=== PATIENT | female | born 1935 | race Caucasian/White ===

== ENCOUNTER 2019-01-14 20:39 | Inpatient (IN) ==
[2019-01-14] MEDS ORDERED: INFLUENZA VIRUS VACCINE 0.5 ML SYRINGE IM ONE (22:54)
[2019-01-14] MEDS ORDERED: NICOTINE 21 MG/24 HR PATCH TRANSDERM PRN (23:07)
[2019-01-14] MEDS ORDERED: ONDANSETRON 4 MG/2 ML VIAL IV PRN (23:07)
[2019-01-14] MEDS ORDERED: SODIUM CHLORIDE 0.9% 1,000 ML IV SCH (23:30)
[2019-01-14 23:49] LABS: Apearance,Urine CLOUDY (Clear); Bacteria,Urine Moderate /HPF (Few); Bilirubin,Urine Negative (Negative); Blood, Urine Small mg/dL (Negative); Glucose,Urine (UA) Negative (Negative); Hyaline Casts,Urine 22 /LPF (0-3); Ketones,Urine Negative (Negative); Mucus,Urine Occasional /LPF (Occasional); Nitrite,Urine Positive (Negative); Protein,Urine Negative; RBC,Urine 5 /HPF (0-4); Squamous Epithelial Cell,Urine Occasional /HPF (0-10); Urine Color Yellow (Yellow); Urine Specific Gravity 1.011 (1.001-1.035); Urine Urobilinogen < 2.0 EU/DL (0.2-1.0); WBC,Urine 68 /HPF (0-6)
[2019-01-14 23:54] LABS: Basophils # 0.1 10*3/uL (0.0-0.2); Basophils % 0.5 % (0.0-0.8); Eosinophils # 0.1 10*3/uL (0.0-0.87); Eosinophils % 1.1 % (0.00-10.9); Hematocrit 27.5 VOL% (35.7-47.0); Hemoglobin 8.5 GM/DL (12.0-16.0); Immature Granulocytes % 0.7 %; Immature Granulocytes Absolute 0.07 #; Lymphocytes % 10.2 % (21.3-54.2); Mean Corpuscular HGB Conc 30.9 GM/DL (32-36); Mean Corpuscular Volume 96.8 FL (87-102); Mean Platelet Volume 10.9 FL (9.6-12.0); Monocytes % 7.1 % (1.7-12.7); Neutrophils % 80.4 % (38.7-73.9); Platelet Count 153 T/CUMM (130-400); Red Blood Count 2.84 MC/CUMM (3.8-5.5); Red Cell Distribution Width 12.4 % (9.3-17.3); White Blood Count 10.1 T/CUMM (4-12)
[2019-01-15 00:22] LABS: CKMB % 3.2 %
[2019-01-15 00:23] LABS: Troponin I 0.057 NG/ML (0.00-0.045)
[2019-01-15 02:09] LABS: Alanine Aminotransferase 14 U/L (13-56); Albumin 2.2 G/DL (3.4-5.0); Alkaline Phosphatase 48 U/L (45-117); Aspartate Amino Transferase 16 U/L (0-37); Bilirubin,Total < 0.39 MG/DL (0.2-1.0); Blood Urea Nitrogen 183 MG/DL (7-18); Estimated Glom Filtration Rate 19 ML/MIN; Glucose 111 MG/DL (74-106); HDL Cholesterol 28 MG/DL (40-60); Risk Ratio 5.14; Thyroid Stimulating Hormone 0.714 uIU/ml (0.358-3.74); Total Protein 5.5 G/DL (6.4-8.3); Triglycerides 161 MG/DL (2-150); VLDL CHOLESTEROL 32.2 MG/DL
[2019-01-15 02:11] LABS: Calcium 6.1 MG/DL (8.5-10.1)
[2019-01-15] MEDS: cefTRIAXone 1,000 MG in SYRINGE 1 EACH IV SCH (06:34)
[2019-01-15] MEDS: DEXTROSE 5% NACL 0.45% 1,000 ML IV SCH ×3 (07:18→20:20)
[2019-01-15 07:50] LABS: Hematocrit 28.8 VOL% (35.7-47.0)
[2019-01-15 08:20] LABS: Alanine Aminotransferase 17 U/L (13-56); Albumin 2.2 G/DL (3.4-5.0); Alkaline Phosphatase 49 U/L (45-117); Aspartate Amino Transferase 20 U/L (0-37); Bilirubin,Total < 0.39 MG/DL (0.2-1.0); Blood Urea Nitrogen 165 MG/DL (7-18); CKMB % 2.6 %; Estimated Glom Filtration Rate 25 ML/MIN; Glucose 99 MG/DL (74-106); Osmolality,Calculated 356.6 MOS/KG (273-304); Total Protein 5.5 G/DL (6.4-8.3); Troponin I 0.041 NG/ML (0.00-0.045)
[2019-01-15] MEDS: PANTOPRAZOLE 40 MG VIAL IV SCH ×2 (08:40→20:19)
[2019-01-15] MEDS ORDERED: ALBUMIN 5% 12.5 GM/250 ML VIAL IV ONE (13:26)
[2019-01-15] MEDS ORDERED: ALBUMIN 25% 12.5 GM in PREMIX 1 EACH IV ONE (13:29)
[2019-01-15] MEDS ORDERED: ALBUMIN 5% 12.5 GM in PREMIX 1 EACH IV ONE (13:38)
[2019-01-15] MEDS ORDERED: NOREPINEPHRINE 8 MG in SODIUM CHLORIDE 0.9% 242 ML IV PRN (18:30)
[2019-01-15] MEDS ORDERED: SODIUM CHLORIDE 0.9% 500 ML IV ONE (18:30)
[2019-01-15 19:35] LABS: Hematocrit 25.6 VOL% (35.7-47.0); Hemoglobin 8.1 GM/DL (12.0-16.0)
[2019-01-16] MEDS: DEXTROSE 5% NACL 0.45% 1,000 ML IV SCH ×2 (02:03→07:47)
[2019-01-16 05:15] LABS: Basophils % 0.3 % (0.0-0.8); Eosinophils # 0.4 10*3/uL (0.0-0.87); Eosinophils % 3.8 % (0.00-10.9); Hematocrit 24.8 VOL% (35.7-47.0); Hemoglobin 7.9 GM/DL (12.0-16.0); Immature Granulocytes % 0.6 %; Immature Granulocytes Absolute 0.06 #; Lymphocytes # 1.2 10*3/uL (1.4-4.0); Lymphocytes % 12.2 % (21.3-54.2); Mean Corpuscular HGB Conc 31.9 GM/DL (32-36); Mean Corpuscular Volume 94.7 FL (87-102); Mean Platelet Volume 11.4 FL (9.6-12.0); Monocytes % 8.2 % (1.7-12.7); Neutrophils % 74.9 % (38.7-73.9); Platelet Count 148 T/CUMM (130-400); Red Blood Count 2.62 MC/CUMM (3.8-5.5); Red Cell Distribution Width 12.4 % (9.3-17.3); White Blood Count 9.8 T/CUMM (4-12)
[2019-01-16 06:03] LABS: Calcium 8.4 MG/DL (8.5-10.1); Osmolality,Calculated 336.2 MOS/KG (273-304)
[2019-01-16] MEDS: cefTRIAXone 1,000 MG in SYRINGE 1 EACH IV SCH (06:29)
[2019-01-16] MEDS ORDERED: SODIUM CHLORIDE 0.9% 1,000 ML IV PRN (06:41)
[2019-01-16] MEDS ORDERED: POTASSIUM CHLORIDE RIDER 100 ML IV ONE (06:55)
[2019-01-16] MEDS: POTASSIUM CHLORIDE RIDER 10 MEQ in PREMIX 1 EACH IV SCH ×4 (07:24→10:30)
[2019-01-16] MEDS: DEXTROSE 5% 1,000 ML IV SCH ×2 (08:10→16:10)
[2019-01-16] MEDS: PANTOPRAZOLE 40 MG VIAL IV SCH ×2 (08:36→22:00)
[2019-01-16] MEDS ORDERED: ETOMIDATE 20 MG/10 ML VIAL IV ONE (09:00)
[2019-01-16] MEDS ORDERED: PROPOFOL 200 MG/20 ML VIAL IV ONE (09:00)
[2019-01-16] MEDS ORDERED: LIDOCAINE 2% 5 ML VIAL ONE (09:00)
[2019-01-16 16:21] LABS: Hemoglobin 10.9 GM/DL (12.0-16.0)
[2019-01-16 19:35] LABS: Hematocrit 32.7 VOL% (35.7-47.0); Hemoglobin 10.4 GM/DL (12.0-16.0)
[2019-01-17] MEDS: DEXTROSE 5% 1,000 ML IV SCH ×3 (00:10→21:27)
[2019-01-17 05:51] LABS: Calcium 8.4 MG/DL (8.5-10.1); Osmolality,Calculated 302.3 MOS/KG (273-304)
[2019-01-17] MEDS: cefTRIAXone 1,000 MG in SYRINGE 1 EACH IV SCH (06:13)
[2019-01-17] MEDS: PANTOPRAZOLE 40 MG VIAL IV SCH (08:20)
[2019-01-17] MEDS ORDERED: MAGNESIUM SULF RIDER 2 GM in PREMIX 1 EACH IV ONE (08:24)
[2019-01-17 18:32] LABS: Basophils % 0.3 % (0.0-0.8); Eosinophils # 0.2 10*3/uL (0.0-0.87); Eosinophils % 1.7 % (0.00-10.9); Hematocrit 37.4 VOL% (35.7-47.0); Hemoglobin 12.3 GM/DL (12.0-16.0); Immature Granulocytes % 0.7 %; Immature Granulocytes Absolute 0.09 #; Lymphocytes # 1.5 10*3/uL (1.4-4.0); Lymphocytes % 11.3 % (21.3-54.2); Mean Corpuscular HGB Conc 32.9 GM/DL (32-36); Mean Corpuscular Volume 90.6 FL (87-102); Mean Platelet Volume 11.4 FL (9.6-12.0); Monocytes % 7.4 % (1.7-12.7); Neutrophils % 78.6 % (38.7-73.9); Platelet Count 139 T/CUMM (130-400); Red Cell Distribution Width 13.1 % (9.3-17.3)
[2019-01-17 18:39] LABS: Red Blood Count 4.13 MC/CUMM (3.8-5.5); White Blood Count 13.3 T/CUMM (4-12)
[2019-01-17] MEDS: PANTOPRAZOLE 40 MG TABLET PO SCH ×2 (19:28→21:25)
[2019-01-17] MEDS: ACETAMINOPHEN 325 MG TABLET PO PRN (21:25)
[2019-01-18 06:04] LABS: Basophils % 0.3 % (0.0-0.8); Eosinophils # 0.1 10*3/uL (0.0-0.87); Hematocrit 35.8 VOL% (35.7-47.0); Hemoglobin 11.8 GM/DL (12.0-16.0); Immature Granulocytes % 0.9 %; Immature Granulocytes Absolute 0.12 #; Lymphocytes # 1.5 10*3/uL (1.4-4.0); Mean Corpuscular Volume 90.2 FL (87-102); Mean Platelet Volume 11.8 FL (9.6-12.0); Monocytes % 8.3 % (1.7-12.7); Neutrophils % 78.5 % (38.7-73.9); Platelet Count 127 T/CUMM (130-400); Red Blood Count 3.97 MC/CUMM (3.8-5.5); Red Cell Distribution Width 12.7 % (9.3-17.3); White Blood Count 13.6 T/CUMM (4-12)
[2019-01-18 06:21] LABS: Osmolality,Calculated 277.7 MOS/KG (273-304)
[2019-01-18] MEDS: cefTRIAXone 1,000 MG in SYRINGE 1 EACH IV SCH (06:22)
[2019-01-18] MEDS: DEXTROSE 5% 1,000 ML IV SCH (06:26)
[2019-01-18] MEDS: PANTOPRAZOLE 40 MG TABLET PO SCH ×2 (08:37→21:04)
[2019-01-18] MEDS ORDERED: DEXTROSE 5% 1,000 ML IV SCH (11:00)
[2019-01-18] MEDS ORDERED: POTASSIUM CHLORIDE 20 MEQ TABLET PO ONE (11:13)
[2019-01-18] MEDS ORDERED: MAGNESIUM SULF RIDER 2 GM in PREMIX 1 EACH IV ONE (12:49)
[2019-01-18] MEDS: ASPIRIN EC 81 MG TABLET PO SCH (14:09)
[2019-01-18] MEDS: ACETAMINOPHEN 325 MG TABLET PO PRN (21:04)
[2019-01-19 05:36] LABS: Basophils # 0.1 10*3/uL (0.0-0.2); Basophils % 0.4 % (0.0-0.8); Eosinophils # 0.3 10*3/uL (0.0-0.87); Eosinophils % 1.8 % (0.00-10.9); Hematocrit 37.9 VOL% (35.7-47.0); Hemoglobin 12.4 GM/DL (12.0-16.0); Immature Granulocytes % 0.5 %; Immature Granulocytes Absolute 0.08 #; Lymphocytes # 1.7 10*3/uL (1.4-4.0); Lymphocytes % 10.9 % (21.3-54.2); Mean Corpuscular HGB Conc 32.7 GM/DL (32-36); Mean Corpuscular Volume 91.3 FL (87-102); Mean Platelet Volume 11.2 FL (9.6-12.0); Monocytes % 6.8 % (1.7-12.7); Neutrophils % 79.6 % (38.7-73.9); Platelet Count 163 T/CUMM (130-400); Red Blood Count 4.15 MC/CUMM (3.8-5.5); White Blood Count 15.4 T/CUMM (4-12)
[2019-01-19] MEDS: cefTRIAXone 1,000 MG in SYRINGE 1 EACH IV SCH (05:47)
[2019-01-19 05:53] LABS: Calcium 8.9 MG/DL (8.5-10.1); Osmolality,Calculated 282.3 MOS/KG (273-304)
[2019-01-19] MEDS ORDERED: AMLODIPINE BENAZEPRIL PO SCH (09:00)
[2019-01-19] MEDS: PANTOPRAZOLE 40 MG TABLET PO SCH ×2 (09:01→21:08)
[2019-01-19] MEDS: ASPIRIN EC 81 MG TABLET PO SCH (09:01)
[2019-01-19] MEDS: DESITIN 4OZ/NYSTATIN 15 GRAM MIXTURE PASTE TOP SCH ×2 (14:48→21:08)
[2019-01-20 04:55] LABS: Basophils # 0.1 10*3/uL (0.0-0.2); Basophils % 0.3 % (0.0-0.8); Eosinophils # 0.5 10*3/uL (0.0-0.87); Eosinophils % 3.3 % (0.00-10.9); Hematocrit 33.9 VOL% (35.7-47.0); Immature Granulocytes % 0.7 %; Immature Granulocytes Absolute 0.11 #; Lymphocytes # 1.6 10*3/uL (1.4-4.0); Lymphocytes % 9.5 % (21.3-54.2); Mean Corpuscular HGB Conc 32.4 GM/DL (32-36); Mean Corpuscular Volume 91.4 FL (87-102); Monocytes % 7.4 % (1.7-12.7); Neutrophils % 78.8 % (38.7-73.9); Platelet Count 192 T/CUMM (130-400); Red Blood Count 3.71 MC/CUMM (3.8-5.5); Red Cell Distribution Width 13.2 % (9.3-17.3); White Blood Count 16.4 T/CUMM (4-12)
[2019-01-20 05:13] LABS: Calcium 8.4 MG/DL (8.5-10.1); Osmolality,Calculated 280.4 MOS/KG (273-304)
[2019-01-20] MEDS: ACETAMINOPHEN 325 MG TABLET PO PRN ×2 (05:36→21:06)
[2019-01-20] MEDS: cefTRIAXone 1,000 MG in SYRINGE 1 EACH IV SCH (06:12)
[2019-01-20] MEDS: PANTOPRAZOLE 40 MG TABLET PO SCH ×2 (09:07→21:09)
[2019-01-20] MEDS: ASPIRIN EC 81 MG TABLET PO SCH (09:08)
[2019-01-20] MEDS: DESITIN 4OZ/NYSTATIN 15 GRAM MIXTURE PASTE TOP SCH ×2 (09:08→21:10)
[2019-01-20] MEDS: AZITHROMYCIN 250 MG TABLET PO SCH (12:35)
[2019-01-21] MEDS: cefTRIAXone 1,000 MG in SYRINGE 1 EACH IV SCH (05:13)
[2019-01-21 05:25] LABS: Basophils # 0.1 10*3/uL (0.0-0.2); Basophils % 0.4 % (0.0-0.8); Eosinophils # 0.6 10*3/uL (0.0-0.87); Eosinophils % 5.2 % (0.00-10.9); Hematocrit 32.6 VOL% (35.7-47.0); Hemoglobin 10.5 GM/DL (12.0-16.0); Immature Granulocytes % 0.7 %; Immature Granulocytes Absolute 0.08 #; Lymphocytes # 1.4 10*3/uL (1.4-4.0); Lymphocytes % 11.9 % (21.3-54.2); Mean Corpuscular HGB Conc 32.2 GM/DL (32-36); Mean Corpuscular Volume 93.7 FL (87-102); Mean Platelet Volume 10.5 FL (9.6-12.0); Monocytes % 8.4 % (1.7-12.7); Neutrophils % 73.4 % (38.7-73.9); Platelet Count 207 T/CUMM (130-400); Red Blood Count 3.48 MC/CUMM (3.8-5.5); Red Cell Distribution Width 13.1 % (9.3-17.3); White Blood Count 11.8 T/CUMM (4-12)
[2019-01-21 05:39] LABS: Osmolality,Calculated 290.7 MOS/KG (273-304)
[2019-01-21] MEDS: PANTOPRAZOLE 40 MG TABLET PO SCH ×2 (09:18→21:25)
[2019-01-21] MEDS: ASPIRIN EC 81 MG TABLET PO SCH (09:18)
[2019-01-21] MEDS: AZITHROMYCIN 250 MG TABLET PO SCH (09:18)
[2019-01-21] MEDS: ACETAMINOPHEN 325 MG TABLET PO PRN ×2 (09:18→21:25)
[2019-01-21] MEDS: DESITIN 4OZ/NYSTATIN 15 GRAM MIXTURE PASTE TOP SCH ×2 (09:19→22:48)
[2019-01-21] MEDS ORDERED: TUBERCULIN SKIN TEST 0.1 ML SYRINGE INTRADERM ONE (15:36)
[2019-01-22] MEDS: cefTRIAXone 1,000 MG in SYRINGE 1 EACH IV SCH (06:31)
[2019-01-22 08:19] VITALS: BP 138/74
[2019-01-22] MEDS: ASPIRIN EC 81 MG TABLET PO SCH (08:55)
[2019-01-22] MEDS: PANTOPRAZOLE 40 MG TABLET PO SCH (08:55)
[2019-01-22] MEDS: AZITHROMYCIN 250 MG TABLET PO SCH (08:55)
[2019-01-22] MEDS: DESITIN 4OZ/NYSTATIN 15 GRAM MIXTURE PASTE TOP SCH (08:56)
== END 2019-01-22 11:48 | disposition swing bed (61) | DRG 377 ==
LOC: N.CC 22:18 → SUATTDRO 22:18 → N.5E 01-17 17:49
PROVIDERS: ADMIT Internal Medicine; ATTEND Internal Medicine